=== PATIENT | female | born 1965 | race Caucasian/White ===

== ENCOUNTER 2024-01-18 10:10 | Outpatient (CLI) | payer OTHER, SELFPAY ==
--- NOTE | ~2024-01-18 | XR_ITS ---
3 VIEWS LUMBAR SPINE Ordering provider: Melvi Najera, DC History: . LOWER BACK PAIN . Comparison: None. FINDINGS: VERTEBRAL BODIES:Degenerative changes of the spine. No visible fracture or subluxation. DISK SPACES: Narrowing of the disc L3-L4, and L4-L5. SOFT TISSUES: Normal. IMPRESSION: No acute osseous abnormality lumbar spine. Reviewed, dictated and finalized at location A.
== END 2024-01-18 10:11 ==
LOC: MICIMG 10:11
PROVIDERS: PCP Chiropractor; Visit Provider Chiropractor
DX: M54.50 Low back pain, unspecified (principal)
CPT/HCPCS: 72110